=== PATIENT | female | born 1985 | race Caucasian/White ===

== ENCOUNTER 2016-12-30 09:54 | Emergency (ER) | payer MEDICAID, OTHER ==
[2016-12-30] MEDS ORDERED: INSULIN LISPRO 100 UNIT/ML 3 ML VIAL SUBCUT ONE (12:10)
[2016-12-30] MEDS ORDERED: SULFAMETHOXAZOLE/TRIMETHOPRIM 800-160 MG TABLET PO ONE (12:42)
[2016-12-30] MEDS ORDERED: CEPHALEXIN 500 MG CAPSULE PO ONE (12:42)
--- NOTE | 2016-12-30 12:46 | ER Document Report ---
ED Skin Rash/Insect Bite/Abscs - General Chief Complaint: Abscess Stated Complaint: POSSIBLE ABSCESS Time Seen by Provider: 12/30/16 10:22 Notes: Patient is a 31-year-old female presents emergency department with a cyst in her right groin for 3 months. Patient states that it has bothered her intermittently for the past 3 months. Currently admits to tenderness to palpation without any evidence of redness. Patient states that she is diabetic not been able to check her sugars today. She has not been able to take her insulin today either. TRAVEL OUTSIDE OF THE [place] IN LAST 30 DAYS: No - Related Data Allergies/Adverse Reactions: Penicillins Allergy (Verified 12/30/16 10:07) Home Medications: Current Home Medications Escitalopram Oxalate [Lexapro 10 mg Tablet] 10 mg PO DAILY 12/30/16 [History] Esomeprazole Mag Trihydrate [Nexium] 40 mg PO DAILY 12/30/16 [History] Gabapentin 400 mg PO TID 12/30/16 [History] Insulin Aspart [Novolog Flexpen] 0 unit SUBCUT .SLD SCALE 12/30/16 [History] Insulin Glargine,Hum.rec.anlog [Toujeo Solostar] 70 unit SQ QHS 12/30/16 [ History] Lisinopril [Prinivil] 20 mg PO DAILY 12/30/16 [History] Loratadine [Claritin] 10 mg PO DAILY PRN 12/30/16 [History] Multivitamin [Multivitamins] 1 each PO DAILY 12/30/16 [History] Simvastatin [Zocor 20 mg Tablet] 20 mg PO QHS 12/30/16 [History] Past Medical History - Social History Smoking Status: Current Every Day Smoker Chew tobacco use (# tins/day): No Frequency of alcohol use: None Drug Abuse: None Family History: Reviewed & Not Pertinent Patient has suicidal ideation: No Patient has homicidal ideation: No Neurological Medical History: Denies: Hx Seizures Endocrine Medical History: Reports: Hx Diabetes Mellitus Type 2 Renal/ Medical History: Denies: Hx Peritoneal Dialysis Psychiatric Medical History: Reports: Hx Anxiety, Hx Depression Past Surgical History: Reports: Hx Section, Hx Cholecystectomy - Immunizations Hx Diphtheria, Pertussis, Tetanus Vaccination: Yes Review of Systems - Review of Systems Constitutional: No symptoms reported Skin: See HPI -: Yes All other systems reviewed and negative Physical Exam - Notes Notes: PHYSICAL EXAM GENERAL: Alert, interacts well. LUNGS: Clear to auscultation bilaterally, no wheezes, rales, or rhonchi. No respiratory distress. HEART: Regular rate and rhythm. No murmurs, gallops, or rubs. ABDOMEN: Soft, nondistended, nontender. No guarding, rebound, or rigidity.. Bowel sounds present in all 4 quadrants. EXTREMITIES: Moves all 4 extremities spontaneously. No edema, radial and dorsalis pedis pulses 2/4 bilaterally. No cyanosis. NEUROLOGICAL: Alert and oriented x4. Normal speech. PSYCH: Normal affect, normal mood. - Skin Skin Temperature: Warm Skin Moisture: Dry Skin Color: Normal Skin Turgor: Elastic Skin irregularity: other - Palpable in the right groin closer to her rectum, within the dermis without involvement of the epidermis, minimal tenderness Irregularity with: Tenderness Course - Re-evaluation Re-evalutation: 12/30/16 19:41 This was aspirated for the past using an 18-gauge needle which was extended with a scalpel to encourage drainage. Patient educated on post I&D management and will discharge home on antibiotics. Told to follow-up with primary care for adjustments in her diabetic medications. - Laboratory Laboratory results interpreted by me: 12/30/16 11:57 POC Glucose 419 H* Discharge - Discharge Clinical Impression: Abscess Condition: Good Disposition: HOME, SELF-CARE Instructions: Abscess ([facility]), Cephalexin ([facility]), Trimethoprim-Sulfa ([facility]), Post Incision and Drainage, MRSA Cellulitis ([facility]) Prescriptions: Cephalexin Monohydrate [Keflex 500 mg Capsule] 500 mg PO QID #20 capsule Sulfamethoxazole/Trimethoprim [Bactrim Ds Tablet] 1 each PO BID 5 Days Referrals: JED YU MD [Primary Care Provider] - Follow up in 3-5 days
[2016-12-30 20:36] VITALS: BP 140/92
== END 2016-12-30 13:19 | disposition home or self-care (01) ==
LOC: ER 09:54
DX: L02.214 Cutaneous abscess of groin (principal); E11.9 Type 2 diabetes mellitus without complications; F17.200 Nicotine dependence, unspecified, uncomplicated; Z88.0 Allergy status to penicillin
CPT/HCPCS: 10060; 99283; 87070; 87205; 82962; 87075; 87077; 87186; J1815

== ENCOUNTER 2017-01-10 22:52 | Emergency (ER) | payer OTHER ==
[2017-01-11] MEDS ORDERED: LIDOCAINE 1% INJ-PF (10 MG/ML) 30 ML SDV INJ ONE (00:15)
[2017-01-11] MEDS ORDERED: OXYCODONE-ACETAMINOPHEN 5-325 MG TABLET PO ONE (00:16)
[2017-01-11] MEDS ORDERED: PROMETHAZINE HCL 25 MG TABLET PO ONE (00:16)
--- NOTE | 2017-01-11 00:17 | ER Document Report ---
ED Skin Rash/Insect Bite/Abscs - General Chief Complaint: Abscess Recheck Stated Complaint: POSSIBLE PAINFUL BOIL/CYST Time Seen by Provider: 01/11/17 00:06 Notes: Patient is a 31-year-old female diabetic that comes emergency department for chief complaint of a painful area on her right lower buttock near the groin, patient states that the area has been worsening over the past 3 days with increased size and tenderness. She states she had the same area drained 1 month ago. She states her blood sugars have been improving with her medications , instead of 500 she is now averaging in the 200s. Patient denies fever or any other symptoms. TRAVEL OUTSIDE OF THE [place] IN LAST 30 DAYS: No - Related Data Allergies/Adverse Reactions: Penicillins Allergy (Verified 12/30/16 10:07) Past Medical History - General Information source: Patient - Social History Smoking Status: Never Smoker Frequency of alcohol use: None Drug Abuse: None Lives with: Family Family History: Reviewed & Not Pertinent Patient has suicidal ideation: No Patient has homicidal ideation: No Neurological Medical History: Denies: Hx Seizures Endocrine Medical History: Reports: Hx Diabetes Mellitus Type 2 Renal/ Medical History: Denies: Hx Peritoneal Dialysis Psychiatric Medical History: Reports: Hx Anxiety, Hx Depression Past Surgical History: Reports: Hx Section, Hx Cholecystectomy - Immunizations Hx Diphtheria, Pertussis, Tetanus Vaccination: Yes Review of Systems - Review of Systems Constitutional: No symptoms reported EENT: No symptoms reported Cardiovascular: No symptoms reported Respiratory: No symptoms reported Gastrointestinal: No symptoms reported Genitourinary: No symptoms reported Female Genitourinary: No symptoms reported Musculoskeletal: No symptoms reported Skin: See HPI Hematologic/Lymphatic: No symptoms reported Neurological/Psychological: No symptoms reported Physical Exam - Vital signs Vitals: Temp Pulse Resp BP Pulse Ox 97.9 F 114 H 16 141/70 H 96 01/10/17 23:08 01/10/17 23:08 01/10/17 23:08 01/10/17 23:08 01/10/17 23:08 Interpretation: Normal - General General appearance: Appears well, Alert In distress: None - HEENT Head: Normocephalic, Atraumatic Eyes: Normal Pupils: PERRL - Respiratory Respiratory status: No respiratory distress Chest status: Nontender Breath sounds: Normal Chest palpation: Normal - Cardiovascular Rhythm: Regular. No: Tachycardia Heart sounds: Normal auscultation, S1 appreciated, S2 appreciated Murmur: No - Abdominal Inspection: Normal Distension: No distension Bowel sounds: Normal Tenderness: Nontender. No: Tender Organomegaly: No organomegaly - Back Back: Normal, Nontender - Extremities General upper extremity: Normal inspection, Nontender, Normal color, Normal ROM , Normal temperature General lower extremity: Normal inspection, Nontender, Normal color, Normal ROM , Normal temperature, Normal weight bearing. No: Jesus's sign - Neurological Neuro grossly intact: Yes Cognition: Normal Orientation: AAOx4 [place] Coma Scale Eye Opening: Spontaneous [place] Coma Scale Verbal: Oriented [place] Coma Scale Motor: Obeys Commands [place] Coma Scale Total: 15 Speech: Normal Motor strength normal: LUE, RUE, LLE, RLE Sensory: Normal - Psychological Associated symptoms: Normal affect, Normal mood - Skin Skin Temperature: Warm Skin Moisture: Dry Skin Color: Normal Skin irregularity: Abscess - There is an erythematous, tender, indurated, fluctuant area over the inferior aspect of the right gluteal area near the inguinal area, no erythema or induration extending to the anal area, no extension towards the genitals. No nearby fat adenopathy noted. Course - Re-evaluation Re-evalutation: Abscess clean, opened, drained, packed, patient will be placed on antibiotics, discussed treatment in detail, discussed care, follow-up, return precautions. Patient states understanding and agreement. - Vital Signs Vital signs: Temp Pulse Resp BP Pulse Ox 98.1 F 95 16 137/74 H 97 01/11/17 01:45 01/11/17 01:45 01/11/17 01:45 01/11/17 01:45 01/11/17 01:45 Procedures - Incision and Drainage Right buttock Type: Single Anesthetic type: 1% Lidocaine mL's of anesthetic: 7 Blade size: 11 I&D procedure: Iodoform packing placed, Other - Surgical cleanser Incision Method: Incision made by scalpel Amount/type of drainage: Moderate, purulent, bloody Discharge - Discharge Clinical Impression: Abscess Condition: Stable Disposition: HOME, SELF-CARE Additional Instructions: Packing needs to come out in 48 hours. Take the doxycycline antibiotic as directed, take the pain medication if needed. Follow up with Primary Care for additional management. Return to the ED for any concerning or worsening symptoms - fever, spreading redness, etc. Prescriptions: Doxycycline Hyclate 100 mg PO BID #14 capsule Oxycodone HCl/Acetaminophen [Percocet 5-325 mg Tablet] 1 - 2 tab PO Q4H PRN #15 tablet PRN Reason: Referrals: JED YU MD [Primary Care Provider] - Follow up as needed
[2017-01-11 02:18] VITALS: BP 137/74
== END 2017-01-11 01:55 | disposition home or self-care (01) ==
LOC: ER 22:52
PROC: 0H98XZZ Drainage of Buttock Skin, External Approach (ICD-10-PCS; principal; 2017-01-10)
DX: L02.31 Cutaneous abscess of buttock (principal); E11.9 Type 2 diabetes mellitus without complications; Z79.899 Other long term (current) drug therapy; Z88.0 Allergy status to penicillin
CPT/HCPCS: 10060; 99283; J3490; A6266

== ENCOUNTER 2017-01-13 12:29 | Emergency (ER) | payer OTHER ==
[2017-01-13 13:01] VITALS: BP 134/77
--- NOTE | 2017-01-13 13:54 | ER Document Report ---
ED General - General Chief Complaint: Cold Symptoms Stated Complaint: FEVER/VOMITING Time Seen by Provider: 01/13/17 13:29 Notes: 31 yo diabetic female c/o cold s/s x 3 days. coincidentally, pt had abscess I& D 2 days prior to symptoms starting. + fever, chills, cough, chest congestion. pt removed packing from abscess yesterday, continues to drain. TRAVEL OUTSIDE OF THE [place] IN LAST 30 DAYS: No - HPI Quality of pain: Pressure, Throbbing Associated symptoms: Body/muscle aches, Chills, Nonproductive cough, Fever Exacerbated by: Movement Relieved by: Denies Similar symptoms previously: Yes Recently seen / treated by doctor: Yes - ED 2 days ago - Related Data Allergies/Adverse Reactions: Penicillins Allergy (Verified 01/13/17 12:57) Past Medical History - General Information source: Patient - Social History Smoking Status: Never Smoker Frequency of alcohol use: None Drug Abuse: None Lives with: Family Family History: Reviewed & Not Pertinent Patient has suicidal ideation: No Patient has homicidal ideation: No Neurological Medical History: Denies: Hx Seizures Endocrine Medical History: Reports: Hx Diabetes Mellitus Type 2 Renal/ Medical History: Denies: Hx Peritoneal Dialysis Psychiatric Medical History: Reports: Hx Anxiety, Hx Depression Past Surgical History: Reports: Hx Section, Hx Cholecystectomy - Immunizations Hx Diphtheria, Pertussis, Tetanus Vaccination: Yes Review of Systems - Review of Systems Constitutional: See HPI EENT: No symptoms reported Cardiovascular: No symptoms reported Respiratory: No symptoms reported Gastrointestinal: No symptoms reported Genitourinary: No symptoms reported Female Genitourinary: No symptoms reported Musculoskeletal: No symptoms reported Skin: No symptoms reported Hematologic/Lymphatic: No symptoms reported Neurological/Psychological: No symptoms reported Physical Exam - Vital signs Vitals: Temp Pulse Resp BP Pulse Ox 98.2 F 95 16 134/77 H 96 01/13/17 12:56 01/13/17 12:56 01/13/17 12:56 01/13/17 12:56 01/13/17 12:56 Interpretation: Normal - General General appearance: Appears well, Alert In distress: None Notes: morbidly obese - HEENT Head: Normocephalic, Atraumatic Eyes: Normal Conjunctiva: Normal Pupils: PERRL - Respiratory Respiratory status: No respiratory distress Chest status: Nontender Breath sounds: Normal Chest palpation: Normal - Cardiovascular Rhythm: Regular Heart sounds: Normal auscultation Murmur: No - Abdominal Inspection: Normal Distension: No distension Bowel sounds: Normal Tenderness: Nontender Organomegaly: No organomegaly - Back Back: Normal, Nontender - Extremities General upper extremity: Normal inspection, Nontender, Normal color, Normal ROM , Normal temperature General lower extremity: Normal inspection, Nontender, Normal color, Normal ROM , Normal temperature, Normal weight bearing. No: Jesus's sign - Neurological Neuro grossly intact: Yes Cognition: Normal Orientation: AAOx4 [place] Coma Scale Eye Opening: Spontaneous [place] Coma Scale Verbal: Oriented [place] Coma Scale Motor: Obeys Commands [place] Coma Scale Total: 15 Speech: Normal Motor strength normal: LUE, RUE, LLE, RLE Sensory: Normal - Psychological Associated symptoms: Normal affect, Normal mood - Skin Skin Temperature: Warm Skin Moisture: Dry Skin Color: Normal Skin irregularity: Abscess - right gluteal fold with draining abscess. moderate amount of purulent material expressed. no surrounding erythema Course - Re-evaluation Re-evalutation: 01/13/17 13:50 wound culture reviewed from previous visit. + peptostrepto and + enterococcus faecalis. pt has been covered with Bactrim, Keflex and presently Doxy. Allergic to PCN. will add Flagyl per C&S report. I think URI s/s are concurrent viral infection and most likely not related to wound. low suspicion for sepsis. pt afebrile, normtensive, not tachycardic. pt educated on wound care for abscess and instructed to follow up with primary care tomorrow. pt stable for discharge and agreeable with plan - Vital Signs Vital signs: Temp Pulse Resp BP Pulse Ox 98.2 F 95 16 134/77 H 96 01/13/17 12:56 01/13/17 12:56 01/13/17 12:56 01/13/17 12:56 01/13/17 12:56 Discharge - Discharge Clinical Impression: Viral illness, Wound check, abscess Condition: Stable Disposition: HOME, SELF-CARE Instructions: Viral Syndrome ([facility]), Abscess ([facility]), Soap Cleansing ([facility]), Antibiotic Therapy ([facility]) Additional Instructions: wash wound with antibacterial soap and water, irrigate well take antibiotics as prescribed follow up with primary care tomorrow Prescriptions: Fluconazole [Diflucan] 150 mg PO DAILY #2 tablet Metronidazole [Flagyl 500 mg Tablet] 500 mg PO BID #14 tablet
== END 2017-01-13 14:07 | disposition home or self-care (01) ==
LOC: ER 12:29
DX: L02.31 Cutaneous abscess of buttock (principal); B34.9 Viral infection, unspecified; R50.9 Fever, unspecified; R11.10 Vomiting, unspecified; R05 Cough; R09.89 Other specified symptoms and signs involving the circulatory and respiratory systems
CPT/HCPCS: 99283

== ENCOUNTER 2017-10-08 19:35 | Inpatient (IN) | payer OTHER ==
[2017-10-08] MEDS ORDERED: DIPH/PERTUSS(ACELL)/TETANUS VAC/PF 0.5 ML SYR (>=10YO) IM ONE (21:39)
--- NOTE | 2017-10-08 21:39 | ER Document Report ---
ED Medical Screen (RME) - General Chief Complaint: Skin Problem Stated Complaint: RIGHT ARM PAIN, SWELLING Time Seen by Provider: 10/08/17 21:36 Notes: 32-year-old injury where her arm went through a surface and she got splinters in her arm, she states afterwards she noticed an infection on her upper arm near her armpit, then 1 week ago she started getting redness and pain near her AC area. She now has an abscess over the AC area with pain in addition to the arm swelling and bruising. She states she had chills and thought she was running a fever, she is an insulin-dependent diabetic and states her sugars have been all over the place. She denies IV drug abuse. TRAVEL OUTSIDE OF THE [place] IN LAST 30 DAYS: No - Related Data Allergies/Adverse Reactions: Penicillins Allergy (Verified 10/08/17 19:38) Past Medical History - Social History Chew tobacco use (# tins/day): No Frequency of alcohol use: None Drug Abuse: None Neurological Medical History: Denies: Hx Seizures Endocrine Medical History: Reports: Hx Diabetes Mellitus Type 2 Renal/ Medical History: Denies: Hx Peritoneal Dialysis Psychiatric Medical History: Reports: Hx Anxiety, Hx Depression Past Surgical History: Reports: Hx Section, Hx Cholecystectomy - Immunizations Hx Diphtheria, Pertussis, Tetanus Vaccination: Yes Physical Exam - Vital signs Vitals: Temp Pulse Resp BP Pulse Ox 98.4 F 105 H 16 160/73 H 98 10/08/17 19:55 10/08/17 19:55 10/08/17 19:55 10/08/17 19:55 10/08/17 19:55 - Cardiovascular Rhythm: Regular, Tachycardia Heart sounds: Normal auscultation, S1 appreciated, S2 appreciated - Extremities General upper extremity: Other - Right AC area with tender, erythematous, fluctuant abscess, there is bruising to the forearm, normal distal neurovascular exam Course - Vital Signs Vital signs: Temp Pulse Resp BP Pulse Ox 98.4 F 105 H 16 160/73 H 98 10/08/17 19:55 10/08/17 19:55 10/08/17 19:55 10/08/17 19:55 10/08/17 19:55
[2017-10-08 22:27] LABS: ABSOLUTE BASOPHILS # (AUTO) 0.1 10^3/uL (0.0-0.2); ABSOLUTE EOSINOPHILS # (AUTO) 0.2 10^3/uL (0.0-0.6); ABSOLUTE LYMPHOCYTES (AUTO) 3.1 10^3/uL (0.5-4.7); ABSOLUTE NEUT (AUTO) 11.8 10^3/uL (1.7-8.2); BASOPHILS % (AUTO) 0.8 % (0-2); EOSINOPHILS % (AUTO) 1.2 % (0-6); HEMATOCRIT 42.3 % (36.0-47.0); HEMOGLOBIN 14.1 g/dL (12.0-15.5); MEAN CORPUSCULAR HEMOGLOBIN 30.5 pg (27.0-33.4); MEAN CORPUSCULAR HGB CONC 33.4 g/dL (32.0-36.0); MEAN CORPUSCULAR VOLUME 91 fl (80-97); PLATELET COUNT 342 10^3/uL (150-450); RED BLOOD COUNT 4.63 10^6/uL (3.72-5.28); TOTAL CELLS COUNTED % (AUTO) 100 %; WHITE BLOOD COUNT 16.2 10^3/uL (4.0-10.5)
--- NOTE | 2017-10-08 22:32 | RADIOLOGY REPORT (SQ) ---
EXAM DESCRIPTION: FOREARM RIGHT COMPLETED DATE/TIME: 10/08/2017 10:21 pm REASON FOR STUDY: fall, swelling, pain COMPARISON: None. NUMBER OF VIEWS: Two views. TECHNIQUE: Two radiographic images acquired of the right forearm, including elbow and wrist in at le ast one projection. LIMITATIONS: None. FINDINGS: MINERALIZATION: Normal. BONES: No acute fracture. No worrisome bone lesions. SOFT TISSUES: Mild swelling. OTHER: No other significant finding. IMPRESSION: No fracture. TECHNICAL DOCUMENTATION: JOB ID: [id number] [id number] 2010 [employer]- All Rights Reserved Reading location - IP/workstation name: [email or web address]
[2017-10-08 22:39] LABS: APPEARANCE,URINE SLIGHTLY-CLOUDY; BILIRUBIN,URINE NEGATIVE (NEGATIVE); COLOR,URINE YELLOW; GLUCOSE, URINE >=500 mg/dL (NEGATIVE); KETONES,URINE NEGATIVE (NEGATIVE); LEUKOCYTE ESTERASE,URINE NEGATIVE (NEGATIVE); NITRITE,URINE NEGATIVE (NEGATIVE); PROTEIN,URINE NEGATIVE (NEGATIVE); URINE SPECIFIC GRAVITY 1.039
[2017-10-08] MEDS ORDERED: CLINDAMYCIN 300 MG/D5W RTU 300 MG/50 ML RTUPB IV ONE (22:48)
[2017-10-08 22:49] LABS: ANION GAP 13 (5-19); BLOOD UREA NITROGEN 11 mg/dL (7-20); CALCIUM 9.2 mg/dL (8.4-10.2); CARBON DIOXIDE 25 mmol/L (22-30); CHLORIDE 96 mmol/L (98-107); GLUCOSE 286 mg/dL (75-110); POTASSIUM 4.2 mmol/L (3.6-5.0); SODIUM 133.6 mmol/L (137-145)
[2017-10-08] MEDS ORDERED: FENTANYL CITRATE INJ/PF 100 MCG/2 ML AMPUL IV ONE (22:49)
--- NOTE | 2017-10-08 22:50 | ER Document Report ---
ED General - General Chief Complaint: Skin Problem Stated Complaint: RIGHT ARM PAIN, SWELLING Time Seen by Provider: 10/08/17 21:36 Mode of Arrival: Ambulatory Information source: Patient Notes: 32-year-old female diabetic presents with complaints of right antecubital swelling and redness. Patient notes that symptoms have been ongoing for approximately 1 week, denies any fevers or chills, notes her blood sugars have been elevated. Patient does note redness, she has had 4 previous abscesses TRAVEL OUTSIDE OF THE [place] IN LAST 30 DAYS: No - HPI Onset: Last week Onset/Duration: Persistent, Worse Quality of pain: Achy Severity: Mild Pain Level: 2 Associated symptoms: Other Exacerbated by: Denies Relieved by: Denies Similar symptoms previously: Yes Recently seen / treated by doctor: Yes - Related Data Allergies/Adverse Reactions: Penicillins Allergy (Verified 10/08/17 19:38) Past Medical History - Social History Smoking Status: Current Every Day Smoker Cigarette use (# per day): Yes Chew tobacco use (# tins/day): No Smoking Education Provided: No Frequency of alcohol use: None Drug Abuse: None Family History: Reviewed & Not Pertinent Patient has suicidal ideation: No Patient has homicidal ideation: No Neurological Medical History: Denies: Hx Seizures Endocrine Medical History: Reports: Hx Diabetes Mellitus Type 2 Renal/ Medical History: Denies: Hx Peritoneal Dialysis Psychiatric Medical History: Reports: Hx Anxiety, Hx Depression Past Surgical History: Reports: Hx Section, Hx Cholecystectomy - Immunizations Hx Diphtheria, Pertussis, Tetanus Vaccination: Yes Review of Systems - Review of Systems Notes: REVIEW OF SYSTEMS: CONSTITUTIONAL : Denies fever, chills, or sweats. Denies recent illness. EENT: Denies eye, ear, throat, or mouth pain or symptoms. Denies nasal or sinus congestion or discharge. Denies throat, tongue, or mouth swelling or difficulty swallowing. CARDIOVASCULAR: Denies chest pain. Denies palpitations or racing or irregular heart beat. Denies ankle edema. RESPIRATORY: Denies cough, cold, or chest congestion. Denies shortness of breath, difficulty breathing, or wheezing. GASTROINTESTINAL: Denies abdominal pain or distention. Denies nausea, vomiting , or diarrhea. Denies blood in vomitus, stools, or per rectum. Denies black, tarry stools. Denies constipation. GENITOURINARY: Denies difficulty urinating, painful urination, burning, frequency, blood in urine, or discharge. FEMALE GENITOURINARY: Denies vaginal bleeding, heavy or abnormal periods, irregular periods. Denies vaginal discharge or odor. MUSCULOSKELETAL: Denies back or neck pain or stiffness. Denies joint pain or swelling. SKIN: Admits to redness swelling of the right antecubital HEMATOLOGIC : Denies easy bruising or bleeding. LYMPHATIC: Denies swollen, enlarged glands. NEUROLOGICAL: Denies confusion or altered mental status. Denies passing out or loss of consciousness. Denies dizziness or lightheadedness. Denies headache. Denies weakness or paralysis or loss of use of either side. Denies problems with gait or speech. Denies sensory loss, numbness, or tingling. Denies seizures. PSYCHIATRIC: Denies anxiety or stress. Denies depression, suicidal ideation, or homicidal ideation. ALL OTHER SYSTEMS REVIEWED AND NEGATIVE. PHYSICAL EXAMINATION: GENERAL: Well-appearing, well-nourished and in no acute distress. HEAD: Atraumatic, normocephalic. EYES: Pupils equal round and reactive to light, extraocular movements intact, conjunctiva are normal. ENT: Nares patent, oropharynx clear without exudates. Moist mucous membranes. NECK: Normal range of motion, supple without lymphadenopathy LUNGS: Breath sounds clear to auscultation bilaterally and equal. No wheezes rales or rhonchi. HEART: Regular rate and rhythm without murmurs ABDOMEN: Soft, nontender, nondistended abdomen. No guarding, no rebound. No masses appreciated. Female : deferred Musculoskeletal: Normal range of motion, no pitting or edema. No cyanosis. NEUROLOGICAL: Cranial nerves grossly intact. Normal speech, normal gait. Normal sensory, motor exams PSYCH: Normal mood, normal affect. SKIN: Abscess noted of the right antecubital measuring approximately 6 x 6 cm with streaking mid bicep Dictation was performed using [employer] voice recognition software Physical Exam - Vital signs Vitals: Temp Pulse Resp BP Pulse Ox 98.4 F 105 H 16 160/73 H 98 10/08/17 19:55 10/08/17 19:55 10/08/17 19:55 10/08/17 19:55 10/08/17 19:55 Course - Re-evaluation Re-evalutation: Deep abscesses noted, patient is noted to be tachycardic, I do believe they will require surgical intervention 10/08/17 22:49 I spoke with and requested admission for abscess , elevated wbc count 10/09/17 00:21 Patient was admitted to primary care physician clindamycin 900 mg was given plan to take to the OR tomorrow - Vital Signs Vital signs: Temp Pulse Resp BP Pulse Ox 98.4 F 105 H 16 160/73 H 98 10/08/17 19:55 10/08/17 19:55 10/08/17 19:55 10/08/17 19:55 10/08/17 19:55 - Laboratory Result Diagrams: 10/08/17 22:08 10/08/17 22:08 Laboratory results interpreted by me: 10/08/17 10/08/17 10/08/17 22:00 22:08 22:08 WBC 16.2 H Absolute Neutrophils 11.8 H Sodium 133.6 L Chloride 96 L Glucose 286 H Urine Glucose (UA) >=500 H Urine Blood MODERATE H Urine Urobilinogen 4.0 H - Diagnostic Test Radiology reviewed: Image reviewed, Reports reviewed - No acute fracture Discharge - Discharge Clinical Impression: Cellulitis and abscess of upper arm and forearm Diabetes Qualifiers: Diabetes mellitus type: type 2 Diabetes mellitus termination clerk insulin use: without alf use Diabetes mellitus complication status: with skin complications Diabetes mellitus complication detail: with other skin complication Qualified Code(s): E11.628 - Type 2 diabetes mellitus with other skin complications Condition: Fair Disposition: ADMITTED INPATIENT Admitting Provider: Nelli Unit Admitted: Surgical Floor
[2017-10-08] MEDS ORDERED: ONDANSETRON HCL INJ/PF 4 MG/2 ML SDV ONE (23:13)
[2017-10-08] MEDS ORDERED: CLINDAMYCIN 600 MG/D5W RTU 600 MG/50 ML RTUPB IV ONE (23:19)
--- NOTE | 2017-10-08 23:44 | PDOC CONSULTATION ---
History of Present Illness Admission Date/PCP: 10/08/17 23:22 JED AIMEE Patient complains of: Pains right antecubital area History of Present Illness: JULIA MILLS is a 32 year old female who fell on her porch and injured right arm through a hole on the wooden floor about a week ago. C/O a bruise right arm followed by redness and pains which are getting worse over the past few days. She tried placing warm compresses over her right arm without improvement. Today got really worse and painful then went to ED. She did have low grade fever of 99.9 but no chills. C/O pains all over right arm. Past Medical History Neurological Medical History: Denies: Seizures Endocrine Medical History: Reports: Diabetes Mellitus Type 2 Psychiatric Medical History: Reports: Depression Past Surgical History Past Surgical History: Reports: Section, Cholecystectomy Social History Smoking Status: Current Every Day Smoker Cigarettes Packs Per Day: 0.5 Frequency of Alcohol Use: Rare Hx Recreational Drug Use: Yes - cocaine in the past Drugs: Cocaine, Marijuana Hx Prescription Drug Abuse: No Family History Family History: Reviewed & Not Pertinent Parental Family History Reviewed: Yes - father of alcohol abuse age52 Children Family History Reviewed: No Sibling(s) Family History Reviewed.: No Medication/Allergy Home Medications: Cephalexin Monohydrate [Keflex 500 mg Capsule] 500 mg PO QID #20 capsule Escitalopram Oxalate [Lexapro 10 mg Tablet] 10 mg PO DAILY 12/30/16 Esomeprazole Mag Trihydrate [Nexium] 40 mg PO DAILY 12/30/16 Gabapentin 400 mg PO TID 12/30/16 Insulin Aspart [Novolog Flexpen] 0 unit SUBCUT .SLD SCALE 12/30/16 Insulin Glargine,Hum.rec.anlog [Toujose ro Solostar] 70 unit SQ QHS 12/30/16 Lisinopril [Prinivil] 20 mg PO DAILY 12/30/16 Loratadine [Claritin] 10 mg PO DAILY PRN 12/30/16 Multivitamin [Multivitamins] 1 each PO DAILY 12/30/16 Simvastatin [Zocor 20 mg Tablet] 20 mg PO QHS 12/30/16 Sulfamethoxazole/Trimethoprim [Bactrim Ds Tablet] 1 each PO BID 5 Days tablet 12/30/16 Doxycycline Hyclate 100 mg PO BID #14 capsule 01/11/17 Oxycodone HCl/Acetaminophen [Percocet 5-325 mg Tablet] 1 - 2 tab PO Q4H PRN #15 tablet 01/11/17 Fluconazole [Diflucan] 150 mg PO DAILY #2 tablet 01/13/17 Metronidazole [Flagyl 500 mg Tablet] 500 mg PO BID #14 tablet 01/13/17 Allergies/Adverse Reactions: Penicillins Allergy (Verified 10/08/17 19:38) Review of Systems Constitutional: PRESENT: fever(s) Eyes: PRESENT: other - no visual/hearing changes Cardiovascular: PRESENT: other - no chest pains Gastrointestinal: PRESENT: other - no pains Genitourinary: PRESENT: other - no dysuria Integumentary: PRESENT: erythema - and swelling right arm Neurological: PRESENT: other - no seizures Hematologic/Lymphatic: PRESENT: other - no easy bruising Physical Exam Vital Signs: Temp Pulse Resp BP Pulse Ox 98.4 F 105 H 16 160/73 H 98 10/08/17 19:55 10/08/17 19:55 10/08/17 19:55 10/08/17 19:55 10/08/17 19:55 General appearance: PRESENT: mild distress Head exam: PRESENT: atraumatic Mouth exam: PRESENT: moist Neck exam: PRESENT: full ROM Respiratory exam: PRESENT: clear to auscultation flor Cardiovascular exam: PRESENT: RRR Pulses: PRESENT: normal radial pulses Vascular exam: PRESENT: normal capillary refill GI/Abdominal exam: PRESENT: soft Extremities exam: PRESENT: tenderness, other - erythematous swelling with firmness about 8 cm in diameter antecubital area right arm. More diffuse slight erythema wit mild tenderness superior and inferior to the swelling Musculoskeletal exam: PRESENT: ambulatory Neurological exam: PRESENT: alert, oriented to person, oriented to place, oriented to time, oriented to situation Psychiatric exam: PRESENT: appropriate affect Skin exam: PRESENT: normal color, warm Results Impressions: Forearm X-Ray 10/08/17 21:36 IMPRESSION: No fracture. Assessment & Plan - Diagnosis (2) Diabetes Qualifiers: Diabetes mellitus type: type 2 Diabetes mellitus long term care administrator insulin use: without fci use Diabetes mellitus complication status: with skin complications Diabetes mellitus complication detail: with other skin complication Qualified Code(s): E11.628 - Type 2 diabetes mellitus with other skin complications Is this a current diagnosis for this admission?: Yes - Time Time Spent: 30 to 50 Minutes - Inpatient Certification Based on my medical assessment, after consideration of the patient's comorbidities, presenting symptoms, or acuity I expect that the services needed warrant INPATIENT care.: No I certify that my determination is in accordance with my understanding of Medicare's requirements for reasonable and necessary INPATIENT services [42 CFR 412.3e].: Yes Medical Necessity: Need For IV Fluids, Need for Pain Control, Need for IV Antibiotics, Need for Surgery - Plan Summary Plan Summary: Medical mx of DM IV antibiotics after blood c/s For I&D of right antecubital abscess
[2017-10-08] MEDS: NORMAL SALINE 1000 ML 1,000 ML IV PRN (23:55)
[2017-10-09] MEDS: FENTANYL CITRATE INJ/PF 100 MCG/2 ML AMPUL IV PRN ×2 (01:41→05:17)
[2017-10-09] MEDS ORDERED: DEXTROSE 50%-WATER 25 GM/50 ML DISP.SYRIN IV PRN ×4 (02:56→04:12)
[2017-10-09] MEDS ORDERED: NORMAL SALINE 1000 ML 1,000 ML IV PRN (02:56)
[2017-10-09] MEDS ORDERED: DEXTROSE 40% GEL 15 GM TUBE PO PRN ×6 (02:56→08:46)
[2017-10-09] MEDS ORDERED: INSULIN LISPRO 100 UNIT/ML 3 ML VIAL SUBCUT PRN ×2 (02:56→08:46)
[2017-10-09] MEDS ORDERED: GLUCAGON,HUMAN RECOMB 1 MG INJ IM PRN ×3 (02:56→08:46)
[2017-10-09] MEDS ORDERED: CLINDAMYCIN 600 MG/D5W RTU 600 MG/50 ML RTUPB IV SCH (03:00)
[2017-10-09] MEDS ORDERED: HYDROCODONE/ACETAMINOPHEN 5-325 MG TABLET PO PRN (03:02)
[2017-10-09 04:00] LABS: PHOSPHORUS 4.1 mg/dL (2.5-4.5)
[2017-10-09] MEDS ORDERED: GLUCAGON,HUMAN RECOMB 1 MG INJ SUBCUT PRN (04:12)
[2017-10-09 04:17] LABS: FREE T4 (FREE THYROXINE) 1.39 ng/dL (0.78-2.19)
[2017-10-09] MEDS ORDERED: INFLUENZA ADLT QUAD (36MOS+) 2017-18 VAC 0.5 ML SYR IM PRN (04:24)
[2017-10-09 04:25] LABS: CREATINE KINASE MB < 0.22 ng/mL (<4.55); TROPONIN I < 0.012 ng/mL
[2017-10-09 04:31] LABS: THYROID STIMULATING HORMONE 0.87 uIU/mL (0.47-4.68)
[2017-10-09] MEDS: KETOROLAC TROMETHAMINE INJ/PF 30 MG/1 ML SDV IV SCH ×3 (05:17→21:44)
[2017-10-09] MEDS: CLINDAMYCIN 600 MG/D5W RTU 600 MG/50 ML RTUPB IV SCH ×3 (05:18→21:43)
[2017-10-09] MEDS ORDERED: CLINDAMYCIN 300 MG/D5W RTU 300 MG/50 ML RTUPB IV SCH (06:00)
[2017-10-09] MEDS ORDERED: DEXTROSE 50%-WATER SYRINGE 25 GM/50 ML DOSE IV PRN ×2 (07:45→08:46)
[2017-10-09] MEDS ORDERED: DEXTROSE 40% GEL 15 GM TUBE X 2 PO PRN ×2 (07:45→08:46)
[2017-10-09] MEDS ORDERED: DEXTROSE 50%-WATER SYRINGE 12.5 GM/25 ML DOSE IV PRN ×2 (07:45→08:46)
[2017-10-09] MEDS: INSULIN LISPRO 100 UNIT/ML 3 ML VIAL SUBCUT PRN ×4 (08:01→21:44)
[2017-10-09 09:47] LABS: URINE AMPHETAMINES SCREEN NEGATIVE; URINE BARBITURATES SCREEN NEGATIVE; URINE BENZODIAZEPINES SCREEN NEGATIVE; URINE MARIJUANA (THC) SCREEN NEGATIVE; URINE METHADONE SCREEN NEGATIVE; URINE PHENCYCLIDINE SCREEN NEGATIVE
[2017-10-09 09:54] LABS: URINE COCAINE SCREEN UNCONFIRMED POSITIVE
[2017-10-09] MEDS ORDERED: ENOXAPARIN SODIUM INJ 30 MG/0.3 ML DISP.SYRIN SUBCUT SCH (10:00)
[2017-10-09] MEDS ORDERED: DIPHENHYDRAMINE HCL 50 MG/ML VIAL IV PRN (10:04)
[2017-10-09 10:16] LABS: CREATINE KINASE MB < 0.22 ng/mL (<4.55); TROPONIN I < 0.012 ng/mL
[2017-10-09] MEDS ORDERED: LIDOCAINE 2%/EPINEPHRINE INJ 20 ML VIAL ONE (10:46)
[2017-10-09] MEDS ORDERED: LIDOCAINE 2% INJ-PF (20 MG/ML) 10 ML AMPUL ONE (10:46)
[2017-10-09] MEDS ORDERED: ROPIVACAINE HCL 0.5% INJ/PF (5 MG/1 ML) 30 ML SDV ONE (10:47)
[2017-10-09] MEDS ORDERED: DEXMEDETOMIDINE INJ 80 MCG/20 ML VIAL IV ONE (10:49)
[2017-10-09] MEDS ORDERED: MIDAZOLAM 2 MG/2 ML INJ ONE (10:49)
[2017-10-09] MEDS ORDERED: METOCLOPRAMIDE HCL INJ/PF 10 MG/2 ML SDV ONE (10:57)
[2017-10-09] MEDS ORDERED: FAMOTIDINE INJ/PF 20 MG/2 ML SDV IV ONE (10:57)
[2017-10-09] MEDS ORDERED: PROPOFOL INJ 200 MG/20 ML VIAL IV ONE (11:18)
[2017-10-09] MEDS ORDERED: LIDOCAINE 0.5% INJ-PF (5 MG/ML) 50 ML SDV ONE (11:18)
[2017-10-09] MEDS ORDERED: KETOROLAC TROMETHAMINE 10 MG TABLET PO PRN (11:30)
--- NOTE | 2017-10-09 11:35 | Operative Report ---
Operative Report DATE OF SURGERY: 10/09/17 PREOPERATIVE DIAGNOSIS: Right arm abscess antecubital fossa POSTOPERATIVE DIAGNOSIS: Complex, superficial and deep abscess involving the antecubital fossa skin subcutaneous tissue fascia and muscle OPERATION: Exploration of antecubital fossa, skin and soft tissue debridement, wound irrigation and packing SURGEON: ALISHA FRASER ANESTHESIA: Other - Combination axillary blot, LMAC TISSUE REMOVED OR ALTERED: Pus skin and fat COMPLICATIONS: None ESTIMATED BLOOD LOSS: Scant INTRAOPERATIVE FINDINGS: See below PROCEDURE: She then had a right arm block installed Dr. Duong. Patient taken to the operating room where heavy LMAC sedation was induced. Right arm was abducted prepped draped sterile fashion Surgical plan surgical timeout were reviewed Appropriate level of anesthesia was felt to have been achieved. A 6 cm long incision was made over the skin crease at the center of the antecubital fossa pus was evacuated from the subcutaneous tissue, the antecubital fossa going down to the confluence of the biceps brachii fascia. The fascia had been disrupted by the infection and so my finger was used to break up loculations at the recess of this apartment. There was limited extension of the infection cephalad, and essentially no extension distally towards the wrist at all loculations were broken up wound irrigated with a liter saline and packed with 1 inch iodoform packing, approximately 1/2 feet. Final operative wound at the dimensions of 6 cm x 3 cm, elliptical shaped. Tolerated procedure well taken recovery room stable condition.
--- NOTE | 2017-10-09 14:30 | PDOC H&P ---
History of Present Illness Admission Date/PCP: 10/08/17 23:22 JEDSUHA YU History of Present Illness: Patient is a 32-year-old female with history of diabetes mellitus, she came to the emergency room for evaluation of swelling and pain of the right arm in the antecubital fossa, for the last 1 week. The swelling was progressively getting bigger there was associated chills or fever, she could emergency room for evaluation there was associated leukocytosis. She came to the emergency room last night, she was seen by the surgeon, she underwent incision and drainage this morning. She was found to have complex superficial and deep abscess involving the antecubital fossa skin, subcutaneous tissue fascia muscle. Past Medical History Endocrine Medical History: Reports: Diabetes Mellitus Type 2, Obesity Psychiatric Medical History: Reports: Depression Past Surgical History Past Surgical History: Reports: Section, Cholecystectomy Social History Smoking Status: Current Every Day Smoker Cigarettes Packs Per Day: 0.5 Frequency of Alcohol Use: None Hx Recreational Drug Use: Yes - cocaine in the past Drugs: None Hx Prescription Drug Abuse: No - Advance Directive Resuscitation Status: Full Code Family History Family History: Reviewed & Not Pertinent Parental Family History Reviewed: Yes Children Family History Reviewed: Yes Sibling(s) Family History Reviewed.: Yes Medication/Allergy Home Medications: Cephalexin Monohydrate [Keflex 500 mg Capsule] 500 mg PO QID #20 capsule Escitalopram Oxalate [Lexapro 10 mg Tablet] 10 mg PO DAILY 12/30/16 Esomeprazole Mag Trihydrate [Nexium] 40 mg PO DAILY 12/30/16 Gabapentin 400 mg PO TID 12/30/16 Insulin Aspart [Novolog Flexpen] 0 unit SUBCUT .SLD SCALE 12/30/16 Insulin Glargine,Hum.rec.anlog [Shahriar Solostmarlon] 70 unit SQ QHS 12/30/16 Lisinopril [Prinivil] 20 mg PO DAILY 12/30/16 Loratadine [Claritin] 10 mg PO DAILY PRN 12/30/16 Multivitamin [Multivitamins] 1 each PO DAILY 12/30/16 Simvastatin [Zocor 20 mg Tablet] 20 mg PO QHS 12/30/16 Sulfamethoxazole/Trimethoprim [Bactrim Ds Tablet] 1 each PO BID 5 Days tablet 12/30/16 Doxycycline Hyclate 100 mg PO BID #14 capsule 01/11/17 Oxycodone HCl/Acetaminophen [Percocet 5-325 mg Tablet] 1 - 2 tab PO Q4H PRN #15 tablet 01/11/17 Fluconazole [Diflucan] 150 mg PO DAILY #2 tablet 01/13/17 Metronidazole [Flagyl 500 mg Tablet] 500 mg PO BID #14 tablet 01/13/17 Allergies/Adverse Reactions: Penicillins Allergy (Verified 10/08/17 19:38) Review of Systems Constitutional: ABSENT: chills, fever(s), headache(s), weight gain, weight loss Eyes: ABSENT: visual disturbances Ears: ABSENT: hearing changes Cardiovascular: ABSENT: chest pain, dyspnea on exertion, edema, orthropnea, palpitations Respiratory: ABSENT: cough, hemoptysis Gastrointestinal: ABSENT: abdominal pain, constipation, diarrhea, hematemesis, hematochezia, nausea, vomiting Genitourinary: ABSENT: dysuria, hematuria Musculoskeletal: PRESENT: other - Right arm pain Integumentary: ABSENT: rash, wounds Neurological: ABSENT: abnormal gait, abnormal speech, confusion, dizziness, focal weakness, syncope Psychiatric: ABSENT: anxiety, depression, homidical ideation, suicidal ideation Endocrine: ABSENT: cold intolerance, heat intolerance, menstrual abnormalities, polydipsia, polyuria Hematologic/Lymphatic: ABSENT: easy bleeding, easy bruising, lymphadenopathy Physical Exam Vital Signs: Temp Pulse Resp BP Pulse Ox 98.3 F 92 16 108/65 96 10/09/17 07:20 10/09/17 07:42 10/09/17 07:20 10/09/17 07:20 10/09/17 07:20 Intake & Output 10/08/17 10/09/17 10/10/17 06:59 06:59 07:59 Intake Total 125 Output Total 125 Balance 0 Weight 127.6 kg General appearance: PRESENT: no acute distress, well-developed, well-nourished Head exam: PRESENT: atraumatic, normocephalic Eye exam: PRESENT: conjunctiva pink, EOMI, PERRLA Ear exam: PRESENT: normal external ear exam Mouth exam: PRESENT: moist, tongue midline Neck exam: PRESENT: full ROM Respiratory exam: PRESENT: clear to auscultation flor Cardiovascular exam: PRESENT: RRR, +S1, +S2 Pulses: PRESENT: normal dorsalis pedis pul, +2 pedal pulses bilateral Vascular exam: PRESENT: normal capillary refill GI/Abdominal exam: PRESENT: normal bowel sounds, soft Rectal exam: PRESENT: deferred Extremities exam: PRESENT: other - She has right arm tenderness, swelling, limitation of range of motion Neurological exam: PRESENT: alert, awake, oriented to person, oriented to place , oriented to time, oriented to situation, CN II-XII grossly intact Psychiatric exam: PRESENT: appropriate affect, normal mood Skin exam: PRESENT: dry, intact, warm Results Laboratory Results: 10/09/17 10/09/17 10/09/17 03:28 03:28 03:28 Phosphorus 4.1 Magnesium 1.6 Ammonia < 8.7 L TSH 0.87 Free T4 1.39 10/09/17 10/09/17 10/09/17 03:28 03:28 09:14 Creatine Kinase < 20 L < 20 L CK-MB (CK-2) < 0.22 Troponin I < 0.012 10/09/17 09:14 Creatine Kinase CK-MB (CK-2) < 0.22 Troponin I < 0.012 Impressions: Forearm X-Ray 10/08/17 21:36 IMPRESSION: No fracture. Assessment & Plan - Diagnosis (1) Abscess of left arm Plan: Continue IV antibiotic clindamycin, 600 mg IV every 6 (2) Diabetes mellitus Qualifiers: Diabetes mellitus type: type 2 Diabetes mellitus complication status: with neurologic complications Diabetes mellitus complication detail: with polyneuropathy Is this a current diagnosis for this admission?: Yes
[2017-10-09 16:49] LABS: CREATINE KINASE MB < 0.22 ng/mL (<4.55); TROPONIN I < 0.012 ng/mL
[2017-10-09] MEDS: DOCUSATE SODIUM 100 MG CAPSULE PO SCH (17:21)
[2017-10-10] MEDS: CLINDAMYCIN 600 MG/D5W RTU 600 MG/50 ML RTUPB IV SCH ×3 (05:45→21:12)
[2017-10-10] MEDS: KETOROLAC TROMETHAMINE INJ/PF 30 MG/1 ML SDV IV SCH ×3 (05:45→21:12)
[2017-10-10 06:59] LABS: ABSOLUTE BASOPHILS # (AUTO) 0.1 10^3/uL (0.0-0.2); ABSOLUTE EOSINOPHILS # (AUTO) 0.2 10^3/uL (0.0-0.6); ABSOLUTE LYMPHOCYTES (AUTO) 2.1 10^3/uL (0.5-4.7); ABSOLUTE MONOCYTES (AUTO) 0.6 10^3/uL (0.1-1.4); ABSOLUTE NEUT (AUTO) 6.1 10^3/uL (1.7-8.2); BASOPHILS % (AUTO) 0.6 % (0-2); EOSINOPHILS % (AUTO) 2.2 % (0-6); HEMATOCRIT 34.5 % (36.0-47.0); HEMOGLOBIN 11.9 g/dL (12.0-15.5); LYMPHOCYTES % (AUTO) 23.3 % (13-45); MEAN CORPUSCULAR HGB CONC 34.5 g/dL (32.0-36.0); MEAN CORPUSCULAR VOLUME 90 fl (80-97); MONOCYTES % (AUTO) 6.8 % (3-13); PLATELET COUNT 244 10^3/uL (150-450); RED BLOOD COUNT 3.84 10^6/uL (3.72-5.28); RED CELL DISTRIBUTION WIDTH 13.8 % (11.5-14.0); SEGMENTED NEUTROPHILS % (AUTO) 67.1 % (42-78); TOTAL CELLS COUNTED % (AUTO) 100 %
[2017-10-10 07:06] LABS: ALANINE AMINOTRANSFERASE 48 U/L (9-52); ALBUMIN 2.6 g/dL (3.5-5.0); ALKALINE PHOSPHATASE 79 U/L (38-126); ANION GAP 7 (5-19); ASPARTATE AMINO TRANSFERASE 34 U/L (14-36); BILIRUBIN,DIRECT 0.1 mg/dL (0.0-0.4); BILIRUBIN,TOTAL 0.5 mg/dL (0.2-1.3); BLOOD UREA NITROGEN 13 mg/dL (7-20); CALCIUM 8.3 mg/dL (8.4-10.2); CARBON DIOXIDE 24 mmol/L (22-30); CHLORIDE 105 mmol/L (98-107); CHOLESTEROL 111.15 mg/dL (0-200); GLUCOSE 233 mg/dL (75-110); POTASSIUM 4.1 mmol/L (3.6-5.0); SODIUM 135.9 mmol/L (137-145); TOTAL PROTEIN 4.8 g/dL (6.3-8.2); TRIGLYCERIDES 98 mg/dL (<150)
[2017-10-10 07:17] LABS: DIRECT LDL 82 mg/dL (<100)
[2017-10-10] MEDS: INSULIN LISPRO 100 UNIT/ML 3 ML VIAL SUBCUT PRN ×4 (08:42→21:12)
--- NOTE | 2017-10-10 09:15 | PDOC PROGRESS REPORT ---
Subjective Progress Note for:: 10/10/17 Reason For Visit: CELLULITIS Patient feels better. Physical Exam Vital Signs: Temp Pulse Resp BP Pulse Ox 97.6 F 83 12 113/64 98 10/10/17 07:52 10/10/17 07:52 10/10/17 07:52 10/10/17 07:52 10/10/17 07:52 Intake & Output 10/09/17 10/10/17 10/11/17 05:59 06:59 06:59 Intake Total Output Total Balance Weight General appearance: PRESENT: no acute distress Musculoskeletal exam: PRESENT: other - Right upper extremity examined. Range of motion of wrist hand and arm preserved. Dressing change performed by nursing staff with removal of packing, wound irrigation and repacking. Results Laboratory Results: 10/10/17 06:20 10/10/17 06:20 10/10/17 10/10/17 06:20 06:20 WBC 9.0 RBC 3.84 Hgb 11.9 L D Hct 34.5 L MCV 90 MCH 31.0 MCHC 34.5 RDW 13.8 Plt Count 244 Seg Neutrophils % 67.1 Lymphocytes % 23.3 Monocytes % 6.8 Eosinophils % 2.2 Basophils % 0.6 Absolute Neutrophils 6.1 Absolute Lymphocytes 2.1 Absolute Monocytes 0.6 Absolute Eosinophils 0.2 Absolute Basophils 0.1 Sodium 135.9 L Potassium 4.1 Chloride 105 Carbon Dioxide 24 Anion Gap 7 BUN 13 Creatinine 0.50 L Est GFR ( Amer) > 60 Est GFR (Non-Af Amer) > 60 Glucose 233 H Calcium 8.3 L Total Bilirubin 0.5 AST 34 ALT 48 Alkaline Phosphatase 79 Total Protein 4.8 L Albumin 2.6 L Triglycerides 98 Cholesterol 111.15 LDL Cholesterol Direct 82 VLDL Cholesterol 20.0 HDL Cholesterol 23 L 10/09/17 10/09/17 10/09/17 03:28 03:28 09:14 Creatine Kinase < 20 L < 20 L CK-MB (CK-2) < 0.22 Troponin I < 0.012 10/09/17 10/09/17 10/09/17 09:14 15:20 15:20 Creatine Kinase < 20 L CK-MB (CK-2) < 0.22 < 0.22 Troponin I < 0.012 < 0.012 Impressions: Forearm X-Ray 10/08/17 21:36 IMPRESSION: No fracture. Assessment & Plan - Diagnosis (1) Abscess of left arm Is this a current diagnosis for this admission?: Yes Plan: She is one day status post I&D right arm with excellent early results; cultures pending Plan: 1. Daily dressing changes; orders written 2. Transition to p.o. antibiotics to cover gram-positive organisms. patient may be discharged home with daily dressing changes once stable from a medical standpoint, follow up with [facility] in 1-2 weeks.
[2017-10-10] MEDS: DOCUSATE SODIUM 100 MG CAPSULE PO SCH ×2 (10:19→17:00)
--- NOTE | 2017-10-10 13:04 | PDOC PROGRESS REPORT ---
Subjective Progress Note for:: 10/10/17 Subjective:: She was admitted yesterday for management of abscess of the right arm , status post incision and drainage Reason For Visit: CELLULITIS Physical Exam Vital Signs: Temp Pulse Resp BP Pulse Ox 97.5 F 85 16 143/91 H 100 10/10/17 12:35 10/10/17 12:35 10/10/17 12:35 10/10/17 12:35 10/10/17 12:35 Intake & Output 10/09/17 10/10/17 10/11/17 05:59 06:59 06:59 Intake Total Output Total Balance Weight General appearance: PRESENT: no acute distress Eye exam: PRESENT: PERRLA Respiratory exam: PRESENT: clear to auscultation flor Cardiovascular exam: PRESENT: +S1, +S2 GI/Abdominal exam: PRESENT: soft Neurological exam: PRESENT: alert Results Laboratory Results: 10/10/17 06:20 10/10/17 06:20 10/10/17 10/10/17 06:20 06:20 WBC 9.0 RBC 3.84 Hgb 11.9 L D Hct 34.5 L MCV 90 MCH 31.0 MCHC 34.5 RDW 13.8 Plt Count 244 Seg Neutrophils % 67.1 Lymphocytes % 23.3 Monocytes % 6.8 Eosinophils % 2.2 Basophils % 0.6 Absolute Neutrophils 6.1 Absolute Lymphocytes 2.1 Absolute Monocytes 0.6 Absolute Eosinophils 0.2 Absolute Basophils 0.1 Sodium 135.9 L Potassium 4.1 Chloride 105 Carbon Dioxide 24 Anion Gap 7 BUN 13 Creatinine 0.50 L Est GFR ( Amer) > 60 Est GFR (Non-Af Amer) > 60 Glucose 233 H Calcium 8.3 L Total Bilirubin 0.5 AST 34 ALT 48 Alkaline Phosphatase 79 Total Protein 4.8 L Albumin 2.6 L Triglycerides 98 Cholesterol 111.15 LDL Cholesterol Direct 82 VLDL Cholesterol 20.0 HDL Cholesterol 23 L 10/09/17 10/09/17 10/09/17 03:28 03:28 09:14 Creatine Kinase < 20 L < 20 L CK-MB (CK-2) < 0.22 Troponin I < 0.012 10/09/17 10/09/17 10/09/17 09:14 15:20 15:20 Creatine Kinase < 20 L CK-MB (CK-2) < 0.22 < 0.22 Troponin I < 0.012 < 0.012 Impressions: Forearm X-Ray 10/08/17 21:36 IMPRESSION: No fracture. Assessment & Plan - Diagnosis (1) Abscess of left arm Is this a current diagnosis for this admission?: Yes (2) Diabetes mellitus Qualifiers: Diabetes mellitus type: type 2 Diabetes mellitus complication status: with neurologic complications Diabetes mellitus complication detail: with polyneuropathy Is this a current diagnosis for this admission?: Yes (3) Cocaine abuse Is this a current diagnosis for this admission?: Yes - Plan Summary Plan Summary: Continue IV antibiotic
[2017-10-10] MEDS ORDERED: LORATADINE 10 MG TABLET PO PRN (14:52)
[2017-10-10] MEDS ORDERED: ESCITALOPRAM OXALATE 10 MG TABLET PO ONE (16:00)
[2017-10-10] MEDS: KETOROLAC TROMETHAMINE INJ/PF 30 MG/1 ML SDV IV PRN (16:47)
[2017-10-10] MEDS: NORMAL SALINE 1000 ML 1,000 ML IV PRN (16:48)
[2017-10-10] MEDS: GABAPENTIN 400 MG CAPSULE PO SCH (21:12)
[2017-10-10] MEDS: SIMVASTATIN 10 MG TABLET PO SCH (21:12)
[2017-10-10] MEDS: TRAZODONE HCL 50 MG TABLET PO SCH (21:12)
[2017-10-11] MEDS: KETOROLAC TROMETHAMINE INJ/PF 30 MG/1 ML SDV IV PRN ×2 (03:33→09:22)
[2017-10-11] MEDS: GABAPENTIN 400 MG CAPSULE PO SCH ×3 (06:37→21:22)
[2017-10-11] MEDS: FENTANYL CITRATE INJ/PF 100 MCG/2 ML AMPUL IV PRN ×2 (06:37→14:47)
[2017-10-11] MEDS: CLINDAMYCIN 600 MG/D5W RTU 600 MG/50 ML RTUPB IV SCH ×3 (06:37→21:22)
[2017-10-11] MEDS: KETOROLAC TROMETHAMINE INJ/PF 30 MG/1 ML SDV IV SCH ×3 (06:38→21:22)
[2017-10-11 07:00] LABS: ABSOLUTE BASOPHILS # (AUTO) 0.1 10^3/uL (0.0-0.2); ABSOLUTE EOSINOPHILS # (AUTO) 0.4 10^3/uL (0.0-0.6); ABSOLUTE LYMPHOCYTES (AUTO) 2.7 10^3/uL (0.5-4.7); ABSOLUTE MONOCYTES (AUTO) 0.5 10^3/uL (0.1-1.4); ABSOLUTE NEUT (AUTO) 3.6 10^3/uL (1.7-8.2); BASOPHILS % (AUTO) 1.3 % (0-2); EOSINOPHILS % (AUTO) 5.5 % (0-6); HEMATOCRIT 34.7 % (36.0-47.0); HEMOGLOBIN 11.8 g/dL (12.0-15.5); LYMPHOCYTES % (AUTO) 37.4 % (13-45); MEAN CORPUSCULAR HEMOGLOBIN 30.7 pg (27.0-33.4); MEAN CORPUSCULAR VOLUME 90 fl (80-97); MONOCYTES % (AUTO) 6.3 % (3-13); PLATELET COUNT 262 10^3/uL (150-450); RED BLOOD COUNT 3.83 10^6/uL (3.72-5.28); RED CELL DISTRIBUTION WIDTH 13.9 % (11.5-14.0); SEGMENTED NEUTROPHILS % (AUTO) 49.5 % (42-78); TOTAL CELLS COUNTED % (AUTO) 100 %; WHITE BLOOD COUNT 7.3 10^3/uL (4.0-10.5)
[2017-10-11 07:24] LABS: ALANINE AMINOTRANSFERASE 62 U/L (9-52); ALBUMIN 2.5 g/dL (3.5-5.0); ALKALINE PHOSPHATASE 83 U/L (38-126); ANION GAP 6 (5-19); ASPARTATE AMINO TRANSFERASE 60 U/L (14-36); BILIRUBIN,DIRECT 0.4 mg/dL (0.0-0.4); BILIRUBIN,TOTAL 0.4 mg/dL (0.2-1.3); BLOOD UREA NITROGEN 13 mg/dL (7-20); CALCIUM 8.1 mg/dL (8.4-10.2); CARBON DIOXIDE 23 mmol/L (22-30); CHLORIDE 109 mmol/L (98-107); GLUCOSE 227 mg/dL (75-110); POTASSIUM 4.4 mmol/L (3.6-5.0); SODIUM 137.6 mmol/L (137-145); TOTAL PROTEIN 5.2 g/dL (6.3-8.2)
[2017-10-11] MEDS: INSULIN LISPRO 100 UNIT/ML 3 ML VIAL SUBCUT PRN ×4 (09:11→23:52)
[2017-10-11] MEDS: ESCITALOPRAM OXALATE 10 MG TABLET PO SCH (09:12)
[2017-10-11] MEDS: LISINOPRIL 10 MG TABLET PO SCH (09:12)
[2017-10-11] MEDS: MULTIVITAMIN TABLET PO SCH (09:12)
[2017-10-11] MEDS: DOCUSATE SODIUM 100 MG CAPSULE PO SCH ×2 (09:13→18:50)
[2017-10-11] MEDS ORDERED: (PENDING PHARMACY ID) (Lisinopril [Prinivil] 20 MG) PO SCH (10:00)
[2017-10-11] MEDS ORDERED: INSULIN GLARGINE HUM REC ANLOG 70 UNIT SQ SCH (10:00)
[2017-10-11] MEDS ORDERED: (PENDING PHARMACY ID) (Multivitamin [Multivitamins] 1 CAP) PO SCH (10:00)
--- NOTE | 2017-10-11 19:47 | PDOC PROGRESS REPORT ---
Subjective Progress Note for:: 10/11/17 Subjective:: No fever or chills. No nausea or vomiting. No chest pain or difficulty with breathing. Reason For Visit: CELLULITIS Physical Exam Vital Signs: Temp Pulse Resp BP Pulse Ox 98.5 F 78 20 138/75 H 97 10/11/17 15:31 10/11/17 15:31 10/11/17 15:31 10/11/17 15:31 10/11/17 15:31 Intake & Output 10/10/17 10/11/17 10/12/17 06:59 06:59 06:59 Intake Total 2610 621 Output Total Balance 2610 621 Weight 132.9 kg 132.9 kg General appearance: PRESENT: no acute distress, morbidly obese Head exam: PRESENT: atraumatic, normocephalic Eye exam: PRESENT: conjunctiva pink, EOMI, PERRLA. ABSENT: scleral icterus Mouth exam: PRESENT: moist Respiratory exam: PRESENT: clear to auscultation flor Cardiovascular exam: PRESENT: RRR. ABSENT: diastolic murmur, rubs, systolic murmur Vascular exam: PRESENT: normal capillary refill. ABSENT: pallor GI/Abdominal exam: PRESENT: normal bowel sounds, soft. ABSENT: distended, guarding, mass, organolmegaly, rebound, tenderness Musculoskeletal exam: PRESENT: normal inspection Neurological exam: PRESENT: alert, awake, oriented to person, oriented to place , oriented to time, oriented to situation, CN II-XII grossly intact. ABSENT: motor sensory deficit Psychiatric exam: PRESENT: appropriate affect, normal mood. ABSENT: homicidal ideation, suicidal ideation Skin exam: PRESENT: dry, intact - I&D site right cubital fossa region with christi packing. No bleeding or discharge. Wound looked fairly clean., warm Results Laboratory Results: 10/11/17 06:36 10/11/17 06:36 10/11/17 10/11/17 06:36 06:36 WBC 7.3 RBC 3.83 Hgb 11.8 L Hct 34.7 L MCV 90 MCH 30.7 MCHC 34.0 RDW 13.9 Plt Count 262 Seg Neutrophils % 49.5 Lymphocytes % 37.4 Monocytes % 6.3 Eosinophils % 5.5 Basophils % 1.3 Absolute Neutrophils 3.6 Absolute Lymphocytes 2.7 Absolute Monocytes 0.5 Absolute Eosinophils 0.4 Absolute Basophils 0.1 Sodium 137.6 Potassium 4.4 Chloride 109 H Carbon Dioxide 23 Anion Gap 6 BUN 13 Creatinine 0.52 Est GFR ( Amer) > 60 Est GFR (Non-Af Amer) > 60 Glucose 227 H Calcium 8.1 L Total Bilirubin 0.4 AST 60 H ALT 62 H Alkaline Phosphatase 83 Total Protein 5.2 L Albumin 2.5 L 10/09/17 10/09/17 10/09/17 03:28 03:28 09:14 Creatine Kinase < 20 L < 20 L CK-MB (CK-2) < 0.22 Troponin I < 0.012 10/09/17 10/09/17 10/09/17 09:14 15:20 15:20 Creatine Kinase < 20 L CK-MB (CK-2) < 0.22 < 0.22 Troponin I < 0.012 < 0.012 Impressions: Forearm X-Ray 10/08/17 21:36 IMPRESSION: No fracture. Assessment & Plan - Diagnosis (1) Cellulitis and abscess of upper arm and forearm Is this a current diagnosis for this admission?: Yes Plan: Continue IV Cleocin coverage in view of resolution of her leukocytosis and wound culture findings. Consider transition to oral route with sensitivity report. (2) Diabetes mellitus Qualifiers: Diabetes mellitus type: type 2 Diabetes mellitus complication status: with neurologic complications Diabetes mellitus complication detail: with polyneuropathy Is this a current diagnosis for this admission?: Yes Plan: See attending physician orders. (3) Morbid obesity with BMI of 50.0-59.9, adult Is this a current diagnosis for this admission?: Yes Plan: See attending physician orders. (4) Cocaine abuse Is this a current diagnosis for this admission?: Yes Plan: See attending physician orders. - Time Time Spent with patient: 25-34 minutes Medications reviewed and adjusted accordingly: Yes Anticipated discharge: Home with Homehealth Within: within 48 hours - Inpatient Certification Based on my medical assessment, after consideration of the patient's comorbidities, presenting symptoms, or acuity I expect that the services needed warrant INPATIENT care.: Yes I certify that my determination is in accordance with my understanding of Medicare's requirements for reasonable and necessary INPATIENT services [42 CFR 412.3e].: Yes Medical Necessity: Need Close Monitoring Due to Risk of Patient Decompensation, Need For Continuous Telemetry Monitoring, Need for IV Antibiotics, Risk of Complication if Not Cared For in Hospital Post Hospital Care: D/C Creative Specialist Documentation - Plan Summary Plan Summary: See attending physician orders.
[2017-10-11] MEDS: SIMVASTATIN 10 MG TABLET PO SCH (21:22)
[2017-10-11] MEDS: TRAZODONE HCL 50 MG TABLET PO SCH (21:22)
[2017-10-12 05:11] LABS: ABSOLUTE BASOPHILS # (AUTO) 0.1 10^3/uL (0.0-0.2); ABSOLUTE EOSINOPHILS # (AUTO) 0.5 10^3/uL (0.0-0.6); ABSOLUTE LYMPHOCYTES (AUTO) 2.8 10^3/uL (0.5-4.7); ABSOLUTE MONOCYTES (AUTO) 0.6 10^3/uL (0.1-1.4); ABSOLUTE NEUT (AUTO) 3.9 10^3/uL (1.7-8.2); BASOPHILS % (AUTO) 0.8 % (0-2); HEMATOCRIT 36.2 % (36.0-47.0); HEMOGLOBIN 12.1 g/dL (12.0-15.5); MEAN CORPUSCULAR HEMOGLOBIN 30.4 pg (27.0-33.4); MEAN CORPUSCULAR HGB CONC 33.4 g/dL (32.0-36.0); MEAN CORPUSCULAR VOLUME 91 fl (80-97); MONOCYTES % (AUTO) 7.1 % (3-13); PLATELET COUNT 278 10^3/uL (150-450); RED BLOOD COUNT 3.97 10^6/uL (3.72-5.28); RED CELL DISTRIBUTION WIDTH 13.9 % (11.5-14.0); SEGMENTED NEUTROPHILS % (AUTO) 50.1 % (42-78); TOTAL CELLS COUNTED % (AUTO) 100 %; WHITE BLOOD COUNT 7.8 10^3/uL (4.0-10.5)
[2017-10-12 05:29] LABS: ALANINE AMINOTRANSFERASE 53 U/L (9-52); ALBUMIN 2.7 g/dL (3.5-5.0); ALKALINE PHOSPHATASE 103 U/L (38-126); ANION GAP 10 (5-19); ASPARTATE AMINO TRANSFERASE 33 U/L (14-36); BILIRUBIN,DIRECT 0.1 mg/dL (0.0-0.4); BILIRUBIN,TOTAL 0.2 mg/dL (0.2-1.3); BLOOD UREA NITROGEN 12 mg/dL (7-20); CALCIUM 8.6 mg/dL (8.4-10.2); CARBON DIOXIDE 26 mmol/L (22-30); CHLORIDE 102 mmol/L (98-107); GLUCOSE 216 mg/dL (75-110); POTASSIUM 4.1 mmol/L (3.6-5.0); SODIUM 137.6 mmol/L (137-145)
[2017-10-12] MEDS: GABAPENTIN 400 MG CAPSULE PO SCH ×3 (05:49→23:10)
[2017-10-12] MEDS: CLINDAMYCIN 600 MG/D5W RTU 600 MG/50 ML RTUPB IV SCH ×2 (05:49→15:30)
[2017-10-12] MEDS: KETOROLAC TROMETHAMINE INJ/PF 30 MG/1 ML SDV IV SCH ×3 (05:49→23:10)
[2017-10-12] MEDS: LISINOPRIL 10 MG TABLET PO SCH (11:52)
[2017-10-12] MEDS: DOCUSATE SODIUM 100 MG CAPSULE PO SCH ×2 (11:52→18:37)
[2017-10-12] MEDS: MULTIVITAMIN TABLET PO SCH (11:52)
[2017-10-12] MEDS: ESCITALOPRAM OXALATE 10 MG TABLET PO SCH (11:52)
[2017-10-12] MEDS: INSULIN LISPRO 100 UNIT/ML 3 ML VIAL SUBCUT PRN ×2 (16:27→23:11)
--- NOTE | 2017-10-12 18:59 | PDOC PROGRESS REPORT ---
Subjective Progress Note for:: 10/12/17 Subjective:: Patient reported newly developing indurated lesion on dorsal aspect of right forearm. she claimed that her recently debrided lesion in the right cubital region started out this way. There is associated minimal pain to palpation. No significant warmth. No fever or chills. No nausea or vomiting. No chest pain or difficulty with breathing. Reason For Visit: CELLULITIS Physical Exam Vital Signs: Temp Pulse Resp BP Pulse Ox 97.9 F 71 20 113/90 H 96 10/12/17 16:14 10/12/17 16:14 10/12/17 11:54 10/12/17 16:14 10/12/17 16:14 Intake & Output 10/11/17 10/12/17 10/13/17 06:59 06:59 06:59 Intake Total 2610 1391 934 Balance 2610 1391 934 Weight 132.9 kg 136 kg Physical Exam: General appearance: PRESENT: no acute distress, morbidly obese Head exam: PRESENT: atraumatic, normocephalic Eye exam: PRESENT: conjunctiva pink, EOMI, PERRLA. ABSENT: scleral icterus Mouth exam: PRESENT: moist Respiratory exam: PRESENT: clear to auscultation flor Cardiovascular exam: PRESENT: RRR. ABSENT: diastolic murmur, rubs, systolic murmur Vascular exam: PRESENT: normal capillary refill. ABSENT: pallor GI/Abdominal exam: PRESENT: normal bowel sounds, soft. ABSENT: distended, guarding, mass, organomegaly, rebound, tenderness Musculoskeletal exam: PRESENT: normal inspection Neurological exam: PRESENT: alert, awake, oriented to person, oriented to place , oriented to time, oriented to situation, CN II-XII grossly intact. ABSENT: motor sensory deficit Psychiatric exam: PRESENT: appropriate affect, normal mood. ABSENT: homicidal ideation, suicidal ideation Skin exam: PRESENT: dry, intact - I&D site right cubital fossa region with christi packing. No bleeding or discharge. Wound looked fairly clean., warm.There is an indurated lesion on the dorsal aspect of right forearm with minimal tenderness to palpation. Results Laboratory Results: 10/12/17 04:03 10/12/17 04:03 10/12/17 10/12/17 04:03 04:03 WBC 7.8 RBC 3.97 Hgb 12.1 Hct 36.2 MCV 91 MCH 30.4 MCHC 33.4 RDW 13.9 Plt Count 278 Seg Neutrophils % 50.1 Lymphocytes % 36.0 Monocytes % 7.1 Eosinophils % 6.0 Basophils % 0.8 Absolute Neutrophils 3.9 Absolute Lymphocytes 2.8 Absolute Monocytes 0.6 Absolute Eosinophils 0.5 Absolute Basophils 0.1 Sodium 137.6 Potassium 4.1 Chloride 102 Carbon Dioxide 26 Anion Gap 10 BUN 12 Creatinine 0.58 Est GFR ( Amer) > 60 Est GFR (Non-Af Amer) > 60 Glucose 216 H Calcium 8.6 Total Bilirubin 0.2 AST 33 ALT 53 H Alkaline Phosphatase 103 Total Protein 5.0 L Albumin 2.7 L 10/09/17 10/09/17 10/09/17 03:28 03:28 09:14 Creatine Kinase < 20 L < 20 L CK-MB (CK-2) < 0.22 Troponin I < 0.012 10/09/17 10/09/17 10/09/17 09:14 15:20 15:20 Creatine Kinase < 20 L CK-MB (CK-2) < 0.22 < 0.22 Troponin I < 0.012 < 0.012 Impressions: Forearm X-Ray 10/08/17 21:36 IMPRESSION: No fracture. Assessment & Plan - Diagnosis (1) Cellulitis and abscess of upper arm and forearm Is this a current diagnosis for this admission?: Yes (2) Diabetes mellitus Qualifiers: Diabetes mellitus type: type 2 Diabetes mellitus complication status: with neurologic complications Diabetes mellitus complication detail: with polyneuropathy Is this a current diagnosis for this admission?: Yes (3) Morbid obesity with BMI of 50.0-59.9, adult Is this a current diagnosis for this admission?: Yes (4) Cocaine abuse Is this a current diagnosis for this admission?: Yes - Time Time Spent with patient: 25-34 minutes Medications reviewed and adjusted accordingly: Yes Anticipated discharge: Home with Homehealth Within: within 24 hours - Inpatient Certification Based on my medical assessment, after consideration of the patient's comorbidities, presenting symptoms, or acuity I expect that the services needed warrant INPATIENT care.: Yes I certify that my determination is in accordance with my understanding of Medicare's requirements for reasonable and necessary INPATIENT services [42 CFR 412.3e].: Yes Medical Necessity: Need Close Monitoring Due to Risk of Patient Decompensation, Need For Continuous Telemetry Monitoring, Need for IV Antibiotics, Risk of Complication if Not Cared For in Hospital Post Hospital Care: D/C Weld Technician Documentation - Plan Summary Plan Summary: See attending physician orders. Increase Lantus Insulin to 80 units S.C daily.D/ C IV Cleocin. Start on Clindamycin 300mg p.o e6iplfy with stat dose now. If she remain afebrile consider discharge home tomorrow.
[2017-10-12] MEDS: SIMVASTATIN 10 MG TABLET PO SCH (23:10)
[2017-10-12] MEDS: TRAZODONE HCL 50 MG TABLET PO SCH (23:10)
[2017-10-12] MEDS: CLINDAMYCIN HCL 150 MG CAPSULE PO SCH (23:11)
[2017-10-13] MEDS: KETOROLAC TROMETHAMINE INJ/PF 30 MG/1 ML SDV IV SCH ×2 (06:01→13:45)
[2017-10-13] MEDS: CLINDAMYCIN HCL 150 MG CAPSULE PO SCH ×2 (06:01→13:49)
[2017-10-13] MEDS: GABAPENTIN 400 MG CAPSULE PO SCH ×2 (06:01→13:50)
[2017-10-13] MEDS: INSULIN LISPRO 100 UNIT/ML 3 ML VIAL SUBCUT PRN ×3 (09:32→17:35)
[2017-10-13] MEDS: LISINOPRIL 10 MG TABLET PO SCH (09:33)
[2017-10-13] MEDS: MULTIVITAMIN TABLET PO SCH (09:33)
[2017-10-13] MEDS: DOCUSATE SODIUM 100 MG CAPSULE PO SCH ×2 (09:34→17:35)
[2017-10-13] MEDS: ESCITALOPRAM OXALATE 10 MG TABLET PO SCH (09:34)
[2017-10-13] MEDS ORDERED: INSULIN GLARGINE HUM REC ANLOG 80 UNIT SQ SCH (10:00)
--- NOTE | 2017-10-13 19:17 | PDOC DISCHARGE SUMMARY ---
General - Admit/Disc Date/PCP Admission Date/Primary Care Provider: 10/08/17 23:22 JED AIMEE Discharge Date: 10/13/17 - Discharge Diagnosis (1) Cellulitis and abscess of upper arm and forearm Is this a current diagnosis for this admission?: Yes (2) Diabetes mellitus Is this a current diagnosis for this admission?: Yes (3) Morbid obesity with BMI of 50.0-59.9, adult Is this a current diagnosis for this admission?: Yes (4) Cocaine abuse Is this a current diagnosis for this admission?: Yes - Additional Information Resuscitation Status: Full Code Prescriptions: Clindamycin HCl [Cleocin 150 mg Capsule] 300 mg PO Q8 #60 capsule Insulin Glargine,Hum.rec.anlog [Toujose ro Soltico] 120 unit SQ ASDIR #10 insuln.pen Home Medications: Escitalopram Oxalate [Lexapro 10 mg Tablet] 10 mg PO DAILY 10/10/17 Gabapentin [Neurontin 400 mg Capsule] 400 mg PO Q8 10/10/17 Insulin Aspart [Novolog Flexpen] 0 unit SUBCUT .SLD SCALE 10/10/17 Lisinopril [Prinivil] 20 mg PO DAILY 10/10/17 Loratadine [Claritin 10 mg Tablet] 10 mg PO DAILYP PRN 10/10/17 Multivitamin [Multivitamins] 1 cap PO DAILY 10/10/17 Simvastatin [Zocor 20 mg Tablet] 20 mg PO QHS 10/10/17 Trazodone HCl [Desyrel 50 mg Tablet] 50 mg PO QHS 10/10/17 Clindamycin HCl [Cleocin 150 mg Capsule] 300 mg PO Q8 #60 capsule 10/13/17 Insulin Glargine,Hum.rec.anlog [Toujeo Solostar] 120 unit SQ ASDIR #10 insuln.pen 10/13/17 History of Present Illness History of Present Illness: JULIA MILLS is a 32 year old female with history of diabetes mellitus, she came to the emergency room for evaluation of swelling and pain of the right arm in the antecubital fossa, for the last 1 week. The swelling was progressively getting bigger there was associated chills or fever, she could emergency room for evaluation there was associated leukocytosis. She came to the emergency room last night, she was seen by the surgeon, she underwent incision and drainage this morning. She was found to have complex superficial and deep abscess involving the antecubital fossa skin, subcutaneous tissue fascia muscle. Hospital Course Hospital Course: Patient was seen in consultation by the surgical team with incision and drainage of the right antecubital fossa abscess. Culture of the drainage grew multiple gram positive cocci. She developed a new right forearm indurated lesion. Her culture sensitivity identified clindamycin as most appropriate antibiotic therapy. Her diabetic mellitus remain significantly uncontrolled with hyperglycemia frequently above 250mg/dL. Her Toujeo insulin was increased to 80 units daily. She will be discharged home on a regimen of 80 units sc qam and 40 units sc qpm. If tolerated I will consider administering single dose in AM at office follow up visit. She will remain on Novolog Insulin premeal and HS sliding scale coverage. Her urine drug screen was positive for cocaine usage. She will be discharge home with [facility] for wound care. She will follow up with Dr Olivo and myself as instructed upon discharge. Physical Exam Vital Signs: Temp Pulse Resp BP Pulse Ox 97.9 F 84 18 132/85 H 99 10/13/17 15:50 10/13/17 15:50 10/13/17 15:50 10/13/17 15:50 10/13/17 15:50 Intake & Output 10/12/17 10/13/17 10/14/17 06:59 06:59 06:59 Intake Total 1391 1619 Balance 1391 1619 Weight 136 kg 136.5 kg Physical Exam: General appearance: PRESENT: no acute distress, morbidly obese Head exam: PRESENT: atraumatic, normocephalic Eye exam: PRESENT: conjunctiva pink, EOMI, PERRLA. ABSENT: scleral icterus Mouth exam: PRESENT: moist Respiratory exam: PRESENT: clear to auscultation flor Cardiovascular exam: PRESENT: RRR. ABSENT: diastolic murmur, rubs, systolic murmur Vascular exam: PRESENT: normal capillary refill. ABSENT: pallor GI/Abdominal exam: PRESENT: normal bowel sounds, soft. ABSENT: distended, guarding, mass, organomegaly, rebound, tenderness Musculoskeletal exam: PRESENT: normal inspection Neurological exam: PRESENT: alert, awake, oriented to person, oriented to place , oriented to time, oriented to situation, CN II-XII grossly intact. ABSENT: motor sensory deficit Psychiatric exam: PRESENT: appropriate affect, normal mood. ABSENT: homicidal ideation, suicidal ideation Skin exam: PRESENT: dry, intact - I&D site right cubital fossa region with christi packing. No bleeding or discharge. Wound looked fairly clean., warm.There is an indurated lesion on the dorsal aspect of right forearm with minimal tenderness to palpation. Results Laboratory Results: 10/12/17 04:03 10/12/17 04:03 10/09/17 11:14 Arm - Right Cellulitis Gram Stain - Final 10/09/17 11:14 Arm - Right Cellulitis Wound Culture - Final Staphylococcus Aureus Staphylococcus Epidermidis Strep Anginosus Group No Anaerobic Organisms 10/09/17 10/09/17 10/09/17 03:28 03:28 09:14 Creatine Kinase < 20 L < 20 L CK-MB (CK-2) < 0.22 Troponin I < 0.012 10/09/17 10/09/17 10/09/17 09:14 15:20 15:20 Creatine Kinase < 20 L CK-MB (CK-2) < 0.22 < 0.22 Troponin I < 0.012 < 0.012 Impressions: Forearm X-Ray 10/08/17 21:36 IMPRESSION: No fracture. Qualifiers - * PATEINT BEING DISCHARGED WITH ANY OF THE FOLLOWING DIAGNOSIS?: No Plan Discharge Plan: Discharge home today with increase in her Lantus insulin to 80 units S.C qam and 40 units S.C qpm along with Novolog insulin premeal sliding scale. She will remain on Clindamycin 300 mg p.o q8 hours x 14 days. She will follow up with surgical teamand myself in office as directed upon discharge.
[2017-10-13 20:00] VITALS: BP 140/82
== END 2017-10-13 20:31 | disposition home health service (06) | DRG 580 ==
LOC: ER 19:35 → EH 23:22 → 4N 10-09 04:00
PROVIDERS: ADMIT Internal Medicine Geriatric Medicine; ATTEND Internal Medicine Geriatric Medicine
PROC: 0JDG0ZZ Extraction of Right Lower Arm Subcutaneous Tissue and Fascia, Open Approach (ICD-10-PCS; 2017-10-09)
PROC: 0J9G0ZZ Drainage of Right Lower Arm Subcutaneous Tissue and Fascia, Open Approach (ICD-10-PCS; principal; 2017-10-09 11:00)
DX: L02.413 Cutaneous abscess of right upper limb (principal); Z68.43 Body mass index [BMI] 50.0-59.9, adult; E11.42 Type 2 diabetes mellitus with diabetic polyneuropathy; E11.65 Type 2 diabetes mellitus with hyperglycemia; L03.113 Cellulitis of right upper limb; B95.61 Methicillin susceptible Staphylococcus aureus infection as the cause of diseases classified elsewhere; B95.5 Unspecified streptococcus as the cause of diseases classified elsewhere; F17.210 Nicotine dependence, cigarettes, uncomplicated; F14.10 Cocaine abuse, uncomplicated; F32.9 Major depressive disorder, single episode, unspecified; S50.11XA Contusion of right forearm, initial encounter; W18.30XA Fall on same level, unspecified, initial encounter; Y92.008 Other place in unspecified non-institutional (private) residence as the place of occurrence of the external cause; E66.9 Obesity, unspecified; Z98.891 History of uterine scar from previous surgery; Z90.49 Acquired absence of other specified parts of digestive tract; Z79.4 Long term (current) use of insulin; Z88.0 Allergy status to penicillin; F41.9 Anxiety disorder, unspecified
CPT/HCPCS: 00400; 36415; 80048; 80061; 80076; 80307; 81001; 81025; 82140; 82550; 82553; 82962; 83036; 83735; 84100; 84439; 84443; 84484; 85025; 87040; 87070; 87075; 87077; 87186; 87205; 90471; 90686; 90715; 96365; 96375; 99284; A6266; J1815; J1885; J2250; J2405; J2704; J2765; J2795; J3010; J3490; J7030; S0028

== ENCOUNTER 2017-11-08 14:59 | Emergency (ER) | payer OTHER ==
--- NOTE | 2017-11-08 15:42 | ER Document Report ---
ED Medical Screen (RME) - General Chief Complaint: Jaundice Stated Complaint: SKIN ISSUES Time Seen by Provider: 11/08/17 15:41 Notes: Patient recently had an abscess on her right arm that was incision and drained. She has been on Levaquin for this. She has not taken any Levaquin in approximately 7 days however. She states she noticed today that her urine was brown and that her skin looks yellow. Therefore she came the emergency department. She states she has been having some left upper quadrant abdominal pain. She has had a previous cholecystectomy. TRAVEL OUTSIDE OF THE [place] IN LAST 30 DAYS: No - Related Data Allergies/Adverse Reactions: Penicillins Allergy (Verified 10/08/17 19:38) Past Medical History - Social History Chew tobacco use (# tins/day): No Frequency of alcohol use: None Drug Abuse: None Neurological Medical History: Denies: Hx Seizures Endocrine Medical History: Reports: Hx Diabetes Mellitus Type 2 Renal/ Medical History: Denies: Hx Peritoneal Dialysis Psychiatric Medical History: Reports: Hx Anxiety, Hx Depression Past Surgical History: Reports: Hx Section, Hx Cholecystectomy - Immunizations Hx Diphtheria, Pertussis, Tetanus Vaccination: Yes History of Influenza Vaccine for 05/2017 - 09/2017 Season: No Physical Exam - Vital signs Vitals: Temp Pulse Resp BP Pulse Ox 97.7 F 104 H 16 118/82 98 11/08/17 15:03 11/08/17 15:03 11/08/17 15:03 11/08/17 15:03 11/08/17 15:03 Course - Vital Signs Vital signs: Temp Pulse Resp BP Pulse Ox 97.7 F 104 H 16 118/82 98 11/08/17 15:03 11/08/17 15:03 11/08/17 15:03 11/08/17 15:03 11/08/17 15:03
[2017-11-08 16:18] LABS: HEMATOCRIT 43.9 % (36.0-47.0); HEMOGLOBIN 14.9 g/dL (12.0-15.5); MEAN CORPUSCULAR HEMOGLOBIN 31.2 pg (27.0-33.4); MEAN CORPUSCULAR VOLUME 92 fl (80-97); PLATELET COUNT 363 10^3/uL (150-450); RED BLOOD COUNT 4.78 10^6/uL (3.72-5.28); RED CELL DISTRIBUTION WIDTH 15.3 % (11.5-14.0); WHITE BLOOD COUNT 10.5 10^3/uL (4.0-10.5)
[2017-11-08 16:33] LABS: ALANINE AMINOTRANSFERASE 677 U/L (9-52); ALBUMIN 3.8 g/dL (3.5-5.0); ALKALINE PHOSPHATASE 389 U/L (38-126); ANION GAP 12 (5-19); ASPARTATE AMINO TRANSFERASE 724 U/L (14-36); BILIRUBIN,DIRECT 9.7 mg/dL (0.0-0.4); BILIRUBIN,TOTAL 11.7 mg/dL (0.2-1.3); BLOOD UREA NITROGEN 10 mg/dL (7-20); CALCIUM 9.9 mg/dL (8.4-10.2); CARBON DIOXIDE 27 mmol/L (22-30); CHLORIDE 97 mmol/L (98-107); GLUCOSE 347 mg/dL (75-110); LIPASE 90.8 U/L (23-300); POTASSIUM 4.8 mmol/L (3.6-5.0); SODIUM 135.6 mmol/L (137-145); TOTAL PROTEIN 7.9 g/dL (6.3-8.2)
[2017-11-08 16:46] LABS: ABSOLUTE LYMPHOCYTES# (MANUAL) 3.6 10^3/uL (0.5-4.7); ABSOLUTE MONOCYTES # (MANUAL) 0.8 10^3/uL (0.1-1.4); ABSOLUTE NEUTROPHILS# (MANUAL) 5.6 10^3/uL (1.7-8.2); BAND NEUTROPHILS % (MANUAL) 1 % (3-5); BASOPHILS % (MANUAL) 1 % (0-2); EOSINOPHILS % (MANUAL) 4 % (0-6); LYMPHOCYTES % (MANUAL) 31 % (13-45); MONOCYTES % (MANUAL) 8 % (3-13); SEGMENTED NEUTROPHILS % (MAN) 52 % (42-78); TOTAL CELLS COUNTED 100
[2017-11-08 16:48] LABS: ANISOCYTOSIS SLIGHT; PLATELET COMMENT ADEQUATE; TOXIC VACUOLATION PRESENT
[2017-11-08 16:50] LABS: APPEARANCE,URINE SLIGHTLY-CLOUDY; BILIRUBIN,URINE MODERATE (NEGATIVE); COLOR,URINE AMBER; GLUCOSE, URINE >=500 mg/dL (NEGATIVE); KETONES,URINE TRACE mg/dL (NEGATIVE); LEUKOCYTE ESTERASE,URINE TRACE (NEGATIVE); NITRITE,URINE NEGATIVE (NEGATIVE); PROTEIN,URINE 30 mg/dL (NEGATIVE); URINE SPECIFIC GRAVITY 1.041
[2017-11-08] MEDS ORDERED: NORMAL SALINE 1000 ML 1,000 ML IV ONE (18:35)
[2017-11-08] MEDS ORDERED: ONDANSETRON HCL INJ/PF 4 MG/2 ML SDV IV ONE (18:49)
--- NOTE | 2017-11-08 18:56 | ER Document Report ---
ED General - General Chief Complaint: Jaundice Stated Complaint: SKIN ISSUES Time Seen by Provider: 11/08/17 15:41 Notes: Patient is a 32-year-old female with a past medical history of diabetes, prior history of cocaine abuse, who presents with 2 weeks of dark urine and noticed in her sclerae skin was yellow today. She also notes that she has had a 13 pound weight loss in the past 2 weeks that was unintentional. She denies any history of similar symptoms in the past. Nothing seems to improve or worsen her symptoms. She denies any associated abdominal pain but does note that she had one episode of vomiting today. She had a cholecystectomy 4 years ago. She has not seen a primary doctor regarding today's concerns. She has no prior history of viral hepatitis, denies any excessive Tylenol use, denies any IV drug use. No risky sexual practices. She was recently on clindamycin and levofloxacin for a right upper extremity arm infection but has since come off of both of these medications. TRAVEL OUTSIDE OF THE [place] IN LAST 30 DAYS: No - Related Data Allergies/Adverse Reactions: Penicillins Allergy (Verified 10/08/17 19:38) Past Medical History - General Information source: Patient - Social History Smoking Status: Current Every Day Smoker Chew tobacco use (# tins/day): No Frequency of alcohol use: None Drug Abuse: None Lives with: Spouse/Significant other Family History: Reviewed & Not Pertinent Patient has suicidal ideation: No Patient has homicidal ideation: No Neurological Medical History: Denies: Hx Seizures Endocrine Medical History: Reports: Hx Diabetes Mellitus Type 2 Renal/ Medical History: Denies: Hx Peritoneal Dialysis Psychiatric Medical History: Reports: Hx Anxiety, Hx Depression Past Surgical History: Reports: Hx Section, Hx Cholecystectomy - Immunizations Hx Diphtheria, Pertussis, Tetanus Vaccination: Yes Review of Systems - Review of Systems Notes: Constitutional: Negative for fever. HENT: Negative for sore throat. Eyes: Negative for visual changes. Cardiovascular: Negative for chest pain. Respiratory: Negative for shortness of breath. Gastrointestinal: Negative for abdominal pain, positive for one episode of vomiting Genitourinary: Negative for dysuria. Musculoskeletal: Negative for back pain. Skin: Positive for icterus Neurological: Negative for headaches, weakness or numbness. 10 point ROS negative except as marked above and in HPI. Physical Exam - Vital signs Vitals: Temp Pulse Resp BP Pulse Ox 97.7 F 104 H 16 118/82 98 11/08/17 15:03 11/08/17 15:03 11/08/17 15:03 11/08/17 15:03 11/08/17 15:03 Interpretation: Tachycardic Notes: PHYSICAL EXAMINATION: GENERAL: Obese female, no distress HEAD: Atraumatic, normocephalic. EYES: Pupils equal round and reactive to light, extraocular movements intact, sclera with icterus, conjunctiva are normal. ENT: nares patent, oropharynx clear without exudates. Moist mucous membranes. NECK: Normal range of motion, supple without lymphadenopathy LUNGS: Breath sounds clear to auscultation bilaterally and equal. No wheezes rales or rhonchi. HEART: Regular tachycardia without murmurs ABDOMEN: Soft, nontender, normoactive bowel sounds. No guarding, no rebound. No masses appreciated. EXTREMITIES: Normal range of motion, no pitting or edema. No cyanosis. NEUROLOGICAL: No focal neurological deficits. Moves all extremities spontaneously and on command. PSYCH: Normal mood, normal affect. SKIN: Warm, diffuse icterus. Course - Re-evaluation Re-evalutation: 11/08/17 18:58 Patient presents with jaundice and dark urine. Patient is obviously icteric diffusely but otherwise nontoxic in appearance, vitals normal limits. She has no focal abdominal tenderness. She is many years status post cholecystectomy making an acute choledocholithiasis or biliary obstruction unlikely as the etiology particularly given that she has no abdominal pain or additional symptoms that would suggest this diagnosis. Patient was recently on levofloxacin as well as clindamycin for an arm cellulitis but review of medical literature does not show any significant occurrences of hepatic toxicity in association with levofloxacin or clindamycin. Patient has no history of viral hepatitis in the past although panel has been sent here today. She denies any risk factors for hepatitis B or C. Her only symptom other than icterus is generalized fatigue and one episode of vomiting today. We do not have GI coverage and I have contacted [facility] for a GI consultation. 11/08/17 19:18 I discussed this case with GI on-call at [facility] who has recommended that we do obtain imaging of the abdomen to rule out a structural abnormality. I do still have the ability to obtain MRCP so this test will be obtained. GI at [facility] has recommended if there is no evidence of structural abnormality they would recommend transfer to a site with transplant hepatology such as [facility] or [place]. He did mention that clindamycin has been noted to occasionally cause hepatic toxicity and could be the etiology of this patient's presentation but that he would recommend hospitalization for observation and repeat chemistry panel testing. 11/08/17 23:05 MRCP unremarkable. No evidence of ductal dilation. I have discussed this case with the accepting physician at [facility] Dr. Morton was accepted the patient. 11/09/17 00:15 Patient stable for transport - Vital Signs Vital signs: Temp Pulse Resp BP Pulse Ox 97.9 F 82 20 118/98 H 97 11/09/17 00:05 11/09/17 00:05 11/09/17 00:05 11/09/17 00:05 11/09/17 00:05 - Laboratory Result Diagrams: 11/08/17 15:50 11/08/17 15:50 Laboratory results interpreted by me: 11/08/17 11/08/17 11/08/17 15:50 15:50 15:50 RDW 15.3 H Band Neutrophils % 1 L Sodium 135.6 L Chloride 97 L Glucose 347 H Total Bilirubin 11.7 H Direct Bilirubin 9.7 H AST 724 H ALT 677 H Alkaline Phosphatase 389 H Urine Protein 30 H Urine Glucose (UA) >=500 H Urine Ketones TRACE H Urine Bilirubin MODERATE H Urine Urobilinogen 4.0 H Ur Leukocyte Esterase TRACE H Acetaminophen 11/08/17 15:50 RDW Band Neutrophils % Sodium Chloride Glucose Total Bilirubin Direct Bilirubin AST ALT Alkaline Phosphatase Urine Protein Urine Glucose (UA) Urine Ketones Urine Bilirubin Urine Urobilinogen Ur Leukocyte Esterase Acetaminophen < 10 L - Diagnostic Test Radiology reviewed: Reports reviewed Discharge - Discharge Clinical Impression: Jaundice Acute liver failure Qualifiers: Hepatic coma status: without hepatic coma Qualified Code(s): K72.00 - Acute and subacute hepatic failure without coma Nausea and vomiting Qualifiers: Vomiting type: unspecified Vomiting Intractability: non-intractable Qualified Code(s): R11.2 - Nausea with vomiting, unspecified Condition: Fair Disposition: [facility] Referrals: JED YU MD [Primary Care Provider] - Follow up as needed
[2017-11-08 19:34] LABS: INTERNATIONAL RATION (INR) 0.92; PROTHROMBIN TIME 12.8 SEC (11.4-15.4)
[2017-11-08 19:35] LABS: PARTIAL THROMBOPLASTIN TIME 30.9 SEC (23.5-35.8)
[2017-11-08 19:46] LABS: ACETAMINOPHEN < 10 ug/mL (10-30)
--- NOTE | 2017-11-08 22:16 | RADIOLOGY REPORT (SQ) ---
EXAM DESCRIPTION: MRI ABDOMEN WITHOUT COMPLETED DATE/TIME: 11/08/2017 9:46 pm REASON FOR STUDY: mrcp, acute liver failure, eval choledocholithiasi COMPARISON: None. TECHNIQUE: Noncontrast MRCP. Source and MIP images reviewed. LIMITATIONS: None. FINDINGS: GALLBLADDER: Surgically absent. INTRAHEPATIC DUCTS: Nondilated. EXTRAHEPATIC DUCTS: Common duct is normal caliber. No dilatation of the pancreatic duct. No ductal filling defects noted. PANCREAS: Generally homogeneous, no gross mass or significant signal alteration. No surrounding infl ammatory changes or fluid. Pancreatic duct is normal. LIVER, SPLEEN, KIDNEYS, ADRENALS: No significant abnormality. VESSELS: No evidence of aneurysm. Grossly appropriate flow voids in the major vascular structures. LUNG BASES: Grossly clear. OTHER: No other significant finding. IMPRESSION: 1. Status post cholecystectomy. 2. No evidence of overt bile duct dilatation or retain ed duct stones. TECHNICAL DOCUMENTATION: JOB ID: [id number] [employer]- All Rights Reserved Reading location - IP/workstation name: [email or web address]
[2017-11-08] MEDS ORDERED: IBUPROFEN 400 MG TABLET PO ONE (23:37)
[2017-11-09 00:06] VITALS: BP 118/98
[2017-11-10 07:43] LABS: HEPATITIS A AB IGM Negative (Negative); HEPATITIS B CORE AB IGM Negative (Negative); HEPATITS B SURFACE ANTIGEN Negative (Negative)
[2017-11-10 08:16] LABS: HEPATITIS C VIRUS ANTIBODY >11.0 s/co ratio (0.0-0.9)
== END 2017-11-09 00:15 | disposition short-term general hospital (02) ==
LOC: ER 14:59
DX: K72.00 Acute and subacute hepatic failure without coma (principal); R11.2 Nausea with vomiting, unspecified; R00.0 Tachycardia, unspecified; R53.83 Other fatigue; R63.4 Abnormal weight loss; E66.9 Obesity, unspecified; Z68.42 Body mass index [BMI] 45.0-49.9, adult; F17.200 Nicotine dependence, unspecified, uncomplicated; E11.9 Type 2 diabetes mellitus without complications; Z90.49 Acquired absence of other specified parts of digestive tract; Z88.0 Allergy status to penicillin
CPT/HCPCS: 99285; 96361; 96374; 36415; 83690; 80307; 85025; 85610; 85730; 81025; 80053; 81001; 80074; 74181; J3490; J2405; J7030